=== PATIENT | female | born 1995 | race Caucasian/White ===

== ENCOUNTER 2022-03-04 12:37 | Emergency (ER) | payer BC ==
[2022-03-04 13:27] LABS: #Monocytes 0.5 10x3/uL (0.0-1.1); #Neutrophils 10.6 10x3/uL (1.5-8.4); %Basophils 0.2 % (0.0-2.0); %Eosinophils 0.3 % (0.0-6.0); %Lymphocytes 12.4 % (18.0-47.0); %Monocytes 4.2 % (0.0-10.0); %Neutrophils 82.4 % (40.0-75.0); Hemoglobin 12.4 g/dL (12.0-15.5); Mean Corpuscular HGB CONC 35.5 g/dL (32.0-36.0); Mean Corpuscular Hemoglobin 31.2 pg (27.0-33.0); Mean Corpuscular Volume 87.7 fl (81.6-98.3); Mean Platelet Volume 8.9 fl (7.4-10.4); Platelet Count 195 10x3/uL (150-450); RBC Distribution Width 12.6 % (11.5-14.5); Red Blood Cell (RBC) Count 3.98 10x6/uL (3.90-5.03); White Blood Cell (WBC) Count 12.9 10x3/uL (3.5-10.5)
[2022-03-04 13:34] LABS: ALT (SGPT) 15 U/L (8-55); AST (SGOT) 18 U/L (5-34); Albumin 3.9 g/dL (3.5-5.0); Alkaline Phosphatase 35 U/L (40-110); Anion Gap 12 mmol/L (10-20); BUN (Urea Nitrogen) 11 mg/dL (7.0-18.7); Bilirubin, Total 0.3 mg/dL (0.2-1.2); CK (CPK) 47 U/L (29-168); Calc. Creatinine Clearance 0 mL/min (70-130); Carbon Dioxide 21 mmol/L (22-29); Chloride 107 mmol/L (98-107); Estimated GFR 127; Globulin 2.5 g/dL (2.4-3.5); Glucose 88 mg/dL (70-105); Lipase 46 U/L (8-78); Potassium 3.5 mmol/L (3.5-5.1); Protein, Total 6.4 g/dL (6.0-8.3); Sodium 136 mmol/L (136-145)
[2022-03-04] MEDS ORDERED: Metoclopramide HCl 10 MG/2 ML VIAL ONE (13:42)
[2022-03-04] MEDS ORDERED: diphenhydrAMINE 50 MG/ML VIAL ONE (13:42)
[2022-03-04 14:01] LABS: Bilirubin Neg (Negative); Blood, Urine 10 (Negative); Clarity Clear (Clear); Glucose, Urine (Dipstick) Normal (Negative); Ketone, Urine 150 mg/dL (Negative); Leukocyte Negative (Negative); Nitrite Negative (Negative); Protein, Urine (Dipstick) Negative (Neg-Trace); Urobilinogen Normal mg/dL (Less than 2)
[2022-03-04 14:20] LABS: RBC/HPF 0-3 HPF (0-3); Squamous Epithelial 0-3 HPF (0-3); WBC/HPF 0-3 HPF (0-3)
[2022-03-04 14:21] LABS: Bacteria/HPF None Seen HPF (None Seen)
== END 2022-03-04 15:15 | disposition home or self-care (01) ==
LOC: CSHERS 12:37
DX: O99.352 Diseases of the nervous system complicating pregnancy, second trimester (principal); G43.809 Other migraine, not intractable, without status migrainosus; Z3A.18 18 weeks gestation of pregnancy
CPT/HCPCS: 36415; 71045; 80053; 81003; 81015; 82550; 83690; 85025; 93005; 96365; 96375; J1200; J2765

== ENCOUNTER 2022-08-10 19:30 | Inpatient (IN) | payer BC ==
[2022-08-12] MEDS ORDERED: Bupivacaine 0.25% HCL 30 ML VIAL ONE (08:00)
[2022-08-12] MEDS ORDERED: HYDROcodone/Acetaminophen 5/325 mg Tablet PO PRN (21:14)
[2022-08-12] MEDS ORDERED: Butorphanol Tartrate 1 MG/ML VIAL SLOW IVP PRN (21:14)
[2022-08-12] MEDS ORDERED: Diphenoxylate HCl/Atropine Tablet PO PRN (21:14)
[2022-08-12] MEDS ORDERED: Methylergonovine 0.2 MG/ML VIAL IM PRN (21:14)
[2022-08-12] MEDS ORDERED: Acetaminophen 500 MG TAB PO PRN (21:14)
[2022-08-12] MEDS ORDERED: Lidocaine 1% (PF) 30 ML VIAL SC PRN (21:14)
[2022-08-12] MEDS ORDERED: Ibuprofen 800 MG TAB PO PRN (21:14)
[2022-08-12] MEDS ORDERED: Misoprostol 200 MCG TAB PR PRN (21:14)
[2022-08-12] MEDS ORDERED: Ondansetron PF 4 MG/2 ML Vial IVP PRN (21:14)
[2022-08-12] MEDS ORDERED: Zolpidem Tartrate 5 MG TAB PO PRN (21:14)
[2022-08-12] MEDS ORDERED: NS w/ Oxytocin 30 units 500 ML IV SCH ×2 (21:14)
[2022-08-12] MEDS ORDERED: hydrALAZINE 20 MG/ML VIAL SLOW IVP PRN (21:14)
[2022-08-12] MEDS ORDERED: Carboprost 250 MCG/ML AMP IM PRN (21:14)
[2022-08-12] MEDS ORDERED: Promethazine HCl 25 MG/ML VIAL IM PRN (21:14)
[2022-08-12 21:30] VITALS: BMI 27.4
[2022-08-12 22:12] LABS: Hemoglobin 13.4 g/dL (12.0-15.5); Mean Corpuscular HGB CONC 34.9 g/dL (32.0-36.0); Mean Corpuscular Hemoglobin 30.5 pg (27.0-33.0); Mean Corpuscular Volume 87.3 fl (81.6-98.3); Mean Platelet Volume 9.1 fl (7.4-10.4); Platelet Count 235 10x3/uL (150-450)
[2022-08-12] MEDS ORDERED: Fentanyl 2 mcg/Bup 0.1% Cadd 100 ML ONE (23:23)
[2022-08-12 23:30] LABS: HBSAg Index 0.14 S/CO (0-0.99); Hep B Surf Ag Non-Reactive S/CO (NonReactive)
[2022-08-12 23:32] LABS: Syphilis Antibody Nonreactive (Nonreactive); Syphilis Antibody Index 0.06 S/CO (<1.00 Non-Reactive)
[2022-08-13] MEDS ORDERED: Naloxone HCl 0.4 mg/ml Vial IVP PRN ×2 (00:43)
[2022-08-13] MEDS ORDERED: Promethazine HCl 25 MG/ML VIAL IM PRN ×2 (00:43→14:33)
[2022-08-13] MEDS ORDERED: Ondansetron PF 4 MG/2 ML Vial IVP PRN ×2 (00:43→14:33)
[2022-08-13] MEDS ORDERED: Lactated Ringer's 500 ML IV PRN (00:43)
[2022-08-13] MEDS ORDERED: diphenhydrAMINE 50 MG/ML VIAL IVP PRN (00:43)
[2022-08-13] MEDS ORDERED: ePHEDrine Sulfate 50 MG/10 ML VIAL SLOW IVP PRN (00:43)
[2022-08-13] MEDS ORDERED: Moisturizing Cream (Eucerin) 113 GM JAR TOP PRN (00:43)
[2022-08-13] MEDS ORDERED: Communication Order-Pharmacy FS SCH (00:45)
[2022-08-13] MEDS ORDERED: Fentanyl 2 mcg/Bupivacaine 0.1% Cassette 100 ML EPIDURAL SCH (00:45)
[2022-08-13] MEDS ORDERED: Fentanyl 2 mcg/Bup 0.1% Cadd 100 ML ONE (08:49)
[2022-08-13] MEDS: Lactated Ringer's 1,000 ML IV SCH (14:31)
[2022-08-13] MEDS: Misoprostol 100 MCG TAB VAG SCH (14:31)
[2022-08-13] MEDS ORDERED: Misoprostol 200 MCG TAB VAG PRN (14:33)
[2022-08-13] MEDS ORDERED: Boostrix 0.5 ML (Tdap) VIAL (>/=7 yrs of age) IM ONE (14:33)
[2022-08-13] MEDS ORDERED: Milk Of Magnesia 30 ML UDCUP PO PRN (14:33)
[2022-08-13] MEDS ORDERED: Methylergonovine 0.2 MG/ML VIAL IM PRN (14:33)
[2022-08-13] MEDS ORDERED: Bisacodyl 10 MG SUPP PR PRN (14:33)
[2022-08-13] MEDS ORDERED: Preparation H Ointment 28 GM TUBE PR PRN (14:33)
[2022-08-13] MEDS ORDERED: NS w/ Oxytocin 30 units 500 ML IV SCH (14:33)
[2022-08-13] MEDS ORDERED: Benzocaine-Menthol 82.5 ML CAN TOP PRN (14:33)
[2022-08-13] MEDS ORDERED: hydrALAZINE 20 MG/ML VIAL SLOW IVP PRN (14:33)
[2022-08-13] MEDS ORDERED: Lanolin Ointment 7 GM TUBE TOP PRN (14:33)
[2022-08-13] MEDS ORDERED: diphenhydrAMINE 25 MG CAP PO PRN (14:33)
[2022-08-13] MEDS: Acetaminophen 325 MG TAB PO PRN (15:33)
[2022-08-13] MEDS: Ibuprofen 800 MG TAB PO SCH ×2 (15:33→21:32)
[2022-08-13] MEDS: Ferrous Sulfate 325 MG TAB PO SCH (17:23)
[2022-08-13] MEDS: Docusate 100 MG CAP PO SCH (21:33)
[2022-08-14] MEDS: Acetaminophen 325 MG TAB PO PRN (04:40)
[2022-08-14] MEDS: Ibuprofen 800 MG TAB PO SCH ×3 (05:50→21:20)
[2022-08-14] MEDS: Ferrous Sulfate 325 MG TAB PO SCH ×2 (07:31→18:29)
[2022-08-14] MEDS: Prenatal Vitamin 1 TAB PO SCH (09:39)
[2022-08-14] MEDS: Docusate 100 MG CAP PO SCH ×2 (09:39→21:19)
[2022-08-15] MEDS: Ibuprofen 800 MG TAB PO SCH (06:13)
[2022-08-15] MEDS: Ferrous Sulfate 325 MG TAB PO SCH (09:02)
[2022-08-15 09:08] VITALS: BP 109/67; TEMP 98.3
[2022-08-15] MEDS: Prenatal Vitamin 1 TAB PO SCH (09:32)
[2022-08-15] MEDS: Docusate 100 MG CAP PO SCH (09:32)
== END 2022-08-15 10:51 | disposition home or self-care (01) | DRG 807 ==
LOC: CSHLD 08-12 20:06 → CSHPED 08-13 15:00
PROVIDERS: ADMIT Student in an Organized Health Care Education/Training Program; ATTEND Student in an Organized Health Care Education/Training Program
PROC: 10E0XZZ Delivery of Products of Conception, External Approach (ICD-10-PCS; principal; 2022-08-13)
PROC: 0KQM0ZZ Repair Perineum Muscle, Open Approach (ICD-10-PCS; 2022-08-13)
PROC: 10907ZC Drainage of Amniotic Fluid, Therapeutic from Products of Conception, Via Natural or Artificial Opening (ICD-10-PCS; 2022-08-13)
DX: O70.1 Second degree perineal laceration during delivery (principal); Z37.0 Single live birth; Z3A.40 40 weeks gestation of pregnancy
CPT/HCPCS: 51702; 85027; 86780; 86850; 86900; 86901; 87340; J2590; S0020

== ENCOUNTER 2025-06-03 09:51 | Inpatient (IN) | payer BC ==
[2025-05-31 11:07] LABS: Hematocrit 40.4 % (34.9-44.5); Hemoglobin 13.7 g/dL (12.0-15.5); Platelet Count 229 10x3/uL (150-450)
[2025-05-31 11:40] LABS: Syphilis Antibody Index 0.08 S/CO (<1.00 Non-Reactive)
[2025-05-31 11:41] LABS: Hep B Surf Ag Non-Reactive S/CO (NonReactive)
[2025-06-03] MEDS ORDERED: Ondansetron PF 4 MG/2 ML Vial IVP PRN ×4 (10:13→15:38)
[2025-06-03] MEDS ORDERED: Carboprost 250 MCG/ML AMP IM PRN (10:13)
[2025-06-03] MEDS ORDERED: Diphenoxylate HCl/Atropine Tablet PO PRN (10:13)
[2025-06-03] MEDS ORDERED: Bicitra 30 ML UDCUP PO PRN (10:13)
[2025-06-03] MEDS ORDERED: hydrALAZINE 20 MG/ML VIAL SLOW IVP PRN ×2 (10:13→15:38)
[2025-06-03] MEDS ORDERED: Methylergonovine 0.2 MG/ML VIAL IM PRN (10:13)
[2025-06-03] MEDS ORDERED: Oxytocin 30 units/NS 500 ML 500 ML IV SCH (10:15)
[2025-06-03] MEDS: Famotidine/PF 20 mg/2ml Vial SLOW IVP PRN (11:56)
[2025-06-03 13:03] VITALS: BMI 28.0
[2025-06-03] MEDS ORDERED: diphenhydrAMINE 50 MG/ML VIAL IVP PRN (13:17)
[2025-06-03] MEDS ORDERED: Meperidine HCl/PF 25 MG (1 mL) VIAL SLOW IVP PRN (13:17)
[2025-06-03] MEDS ORDERED: HYDROmorphone 0.5 MG/0.5 ML SYRINGE SLOW IVP PRN (13:17)
[2025-06-03] MEDS: Ketorolac Tromethamine 30 MG (1 mL) VIAL IVP SCH (13:30)
[2025-06-03] MEDS ORDERED: Communication Order-Pharmacy FS SCH (13:30)
[2025-06-03] MEDS: Oxytocin 10 UNITS/ML VIAL ONE ×2 (13:33→13:35)
[2025-06-03] MEDS: Erythromycin Base 0.5% Oint 1 GM TUBE ONE (13:34)
[2025-06-03] MEDS: Hepatitis B Vaccine 10 MCG/0.5 ML SYR ONE (13:34)
[2025-06-03] MEDS: Ondansetron PF 4 MG/2 ML Vial ONE (13:35)
[2025-06-03] MEDS: PHENYLEPHRINE-NS 100 MCG/ML 10 ML SYRINGE ONE (13:35)
[2025-06-03] MEDS: Famotidine/PF 20 mg/2ml Vial ONE (13:35)
[2025-06-03] MEDS ORDERED: Lanolin Ointment 7 GM TUBE TOP PRN (15:38)
[2025-06-03] MEDS ORDERED: Acetaminophen 325 MG TAB PO PRN (15:38)
[2025-06-03] MEDS ORDERED: Bisacodyl 10 MG SUPP PR PRN (15:38)
[2025-06-03] MEDS ORDERED: diphenhydrAMINE 25 MG CAP PO PRN (15:38)
[2025-06-03] MEDS ORDERED: Boostrix 0.5 ML (Tdap) VIAL (>/=7 yrs of age) IM ONE (15:38)
[2025-06-03] MEDS: Ketorolac Tromethamine 30 MG (1 mL) VIAL IVP PRN (18:46)
[2025-06-03] MEDS: Ferrous Sulfate 325 MG TAB PO SCH (21:21)
[2025-06-04] MEDS: HYDROcodone/Acetaminophen 5/325 mg Tablet PO PRN (00:56)
[2025-06-04] MEDS ORDERED: HYDROcodone/Acetaminophen 5/325 mg Tablet PO PRN (01:31)
[2025-06-04 04:40] LABS: Hematocrit 31.8 % (34.9-44.5); Hemoglobin 10.8 g/dL (12.0-15.5); Mean Corpuscular Hemoglobin 29.3 pg (27.0-33.0); Mean Corpuscular Volume 86.2 fL (81.6-98.3); Platelet Count 183 10x3/uL (150-450); Red Blood Cell (RBC) Count 3.69 10x6/uL (3.90-5.03); White Blood Cell (WBC) Count 14.53 10x3/uL (3.5-10.5)
[2025-06-04] MEDS: Ibuprofen 800 MG TAB PO SCH (13:59)
[2025-06-04] MEDS: Simethicone Chewable 80 MG TAB PO PRN (19:35)
[2025-06-05 16:35] VITALS: BP 116/69; TEMP 98.3
== END 2025-06-05 15:30 | disposition home or self-care (01) | DRG 788 ==
LOC: CSHLD 09:51 → CSHPP 14:58
PROVIDERS: ADMIT Student in an Organized Health Care Education/Training Program; ATTEND Student in an Organized Health Care Education/Training Program
PROC: 10D00Z1 Extraction of Products of Conception, Low, Open Approach (ICD-10-PCS; principal; 2025-06-03)
PROC: 4A1HXCZ Monitoring of Products of Conception, Cardiac Rate, External Approach (ICD-10-PCS; 2025-06-03)
PROC: 3E03329 Introduction of Other Anti-infective into Peripheral Vein, Percutaneous Approach (ICD-10-PCS; 2025-06-03)
PROC: 3E0234Z Introduction of Serum, Toxoid and Vaccine into Muscle, Percutaneous Approach (ICD-10-PCS; 2025-06-03)
DX: O32.1XX0 Maternal care for breech presentation, not applicable or unspecified (principal); Z3A.39 39 weeks gestation of pregnancy; Z79.899 Other long term (current) drug therapy; Z37.0 Single live birth; Z23 Encounter for immunization
CPT/HCPCS: 36415; 51702; 85014; 85018; 85027; 85049; 86780; 86850; 86900; 86901; 87340; J1308; J1885; J2274; J2405; J2590; J3010; J7120